=== PATIENT | female | born 1975 | race Caucasian/White ===

== ENCOUNTER 2017-02-27 19:05 | Emergency (ER) | payer OTHER ==
[2017-02-27 20:12] VITALS: BP 147/95
--- NOTE | 2017-02-27 20:40 | ED ---
Throat Pain/Nasal Congestion - HPI Summary HPI Summary: 41 yr old female with the complaint of left submandibular gland pain, and swelling. HPI: for one week she has had pain and swelling. Pain 6/10. Localized to submandibular left gland and radiates into her left ear. She squeezed a small stone from the salivary duct under her tongue and some pus two days ago. She has had prior sialoadenitis. Denies drooling. Denies fever. - History of Current Complaint Chief Complaint: UCDentalProblem Time Seen by Provider: 02/27/17 20:07 - Allergies/Home Medications Allergies/Adverse Reactions: Allergies Allergy/AdvReac Type Severity Reaction Status Date / Time No Known Allergies Allergy Verified 02/27/17 20:12 PMH/Surg Hx/FS Hx/Imm Hx EENT History: Reports: Other - sialoadenitis Infectious Disease History: No Infectious Disease History: Denies: Traveled Outside the [place] in Last 30 Days - Social History Alcohol Use: None Substance Use Type: Reports: None Smoking Status (MU): Never Smoked Tobacco Review of Systems Constitutional: Negative Positive: Other - left submandibular gland swelling Respiratory: Negative All Other Systems Reviewed And Are Negative: Yes Physical Exam Triage Information Reviewed: Yes Vital Signs On Initial Exam: Initial Vitals Temp Pulse Resp BP Pulse Ox 99.4 F 95 16 147/95 100 02/27/17 20:07 02/27/17 20:07 02/27/17 20:07 02/27/17 20:07 02/27/17 20:07 Vital Signs Reviewed: Yes Appearance: Positive: Well-Appearing, No Pain Distress Skin: Positive: Warm, Skin Color Reflects Adequate Perfusion Eyes: Positive: Normal, EOMI ENT: Positive: TMs normal, Other - her left submandibular gland is moderately enlarged and tender. No pus. No ludwigs angina. And no elevation of the tongue. She has no drooling and speaks normally.. Negative: Nasal drainage, Trismus, Muffled/hoarse voice Neck: Positive: Other: - as above Respiratory/Lung Sounds: Positive: Clear to Auscultation Cardiovascular: Positive: Normal, RRR Musculoskeletal: Positive: Normal Neurological: Positive: Normal, Sensory/Motor Intact, Alert, Oriented to Person Place, Time, CN Intact II-III Psychiatric: Positive: Normal Diagnostics - Vital Signs Vital Signs Temp Pulse Resp BP Pulse Ox 02/27/17 20:07 99.4 F 95 16 147/95 100 - Laboratory Lab Statement: Any lab studies that have been ordered have been reviewed, and results considered in the medical decision making process. EENT Course/Dx - Course Course Of Treatment: 41 yr old with sialoadenitis. Rx with augmentin and sialogogues. She will follow up with PMD - Diagnoses Provider Diagnoses: Sialoadenitis of submandibular gland Discharge - Discharge Plan Condition: Good Disposition: HOME Prescriptions: Amoxicillin/Clavulanate TAB* [Augmentin TAB 875*] 875 mg PO BID #20 tab Patient Education Materials: Sialoadenitis (ED) Referrals: [facility] [place] [facility] [Outside] No Primary Care Phys,NOPCP [Primary Care Provider] -
== END 2017-02-27 20:44 | disposition home or self-care (01) ==
LOC: UCCORT 19:05
DX: K11.20 Sialoadenitis, unspecified (principal)
CPT/HCPCS: 99202; G0463